=== PATIENT | male | born 1985 ===

== ENCOUNTER 2022-03-03 23:08 | Observation (INO) | payer SELFPAY ==
[2022-03-04] MEDS ORDERED: Sodium Chloride 0.9% 10 ML Syringe FLUSH PRN
[2022-03-04] MEDS ORDERED: Sodium Chloride 0.9% 2.5 ML Syringe FLUSH PRN
[2022-03-04 00:10] LABS: CORONAVIRUS COVID-19 NAA NEGATIVE (NEGATIVE); INFLUENZA A NAA NEGATIVE (NEGATIVE); INFLUENZA B NAA NEGATIVE (NEGATIVE)
[2022-03-04 00:38] LABS: BLOOD UREA NITROGEN,BUN 5 mg/dL (7.0-18.0); CARBON DIOXIDE,CO2 28.7 mmol/L (21.0-32.0); CHLORIDE,CL 92 mmol/L (98-107); GLUCOSE RANDOM 123 mg/dL (74-106); POTASSIUM,K 2.8 mmol/L (3.5-5.1); SODIUM,NA 135 mmol/L (136-148)
[2022-03-04 00:49] LABS: ESTIMATED GFR 124 mL/min (>60)
[2022-03-04] MEDS ORDERED: LORazepam 2 MG/ML SDV IVPUSH ONE ×2 (01:03→02:54)
[2022-03-04] MEDS ORDERED: Folic Acid 1 MG Tab PO ONE (01:32)
[2022-03-04] MEDS ORDERED: Thiamine 200 MG/2 ML MDV IVPUSH ONE (01:32)
[2022-03-04] MEDS ORDERED: Ondansetron 4 MG/2 ML SDV IVPUSH ONE (01:34)
[2022-03-04] MEDS ORDERED: Sodium Chloride 0.9% 1,000 ML IV ONE ×3 (01:37→02:55)
[2022-03-04] MEDS ORDERED: Alum Hydro/Mag Hydro/Simeth XS 15 ML, Lidocaine 2% 5 ML PO ONE ×2 (02:11)
[2022-03-04] MEDS ORDERED: Albuterol/Ipratropium 3.0-0.5 MG/3 ML Neb Soln NEB PRN (03:12)
[2022-03-04] MEDS ORDERED: Acetaminophen 325 MG Tab PO PRN (03:12)
[2022-03-04] MEDS ORDERED: Ondansetron 4 MG/2 ML SDV IVPUSH PRN (03:12)
[2022-03-04] MEDS ORDERED: LORazepam 2 MG/ML SDV IVPUSH PRN (03:13)
[2022-03-04] MEDS ORDERED: Lactated Ringers 1,000 ML IV SCH (03:15)
[2022-03-04] MEDS ORDERED: POTASSIUM CHLORIDE IV SCH (03:17)
[2022-03-04] MEDS ORDERED: LACTATED RINGERS IV SCH (03:17)
[2022-03-04] MEDS ORDERED: Potassium Chloride 20 MEQ in Premix Bag 1 BAG IV ONE ×5 (03:40→11:30)
[2022-03-04] MEDS ORDERED: Polyethylene Glycol 3350 Powder 17 GM Packet PO PRN (07:06)
[2022-03-04 07:51] LABS: CARBON DIOXIDE,CO2 30.6 mmol/L (21.0-32.0); POTASSIUM,K 2.9 mmol/L (3.5-5.1)
[2022-03-04] MEDS ORDERED: Folic Acid 1 MG Tab PO SCH (09:00)
[2022-03-04] MEDS ORDERED: amLODIPine 5 MG Tab PO SCH (11:15)
[2022-03-04] MEDS ORDERED: Propranolol 60 MG Cap.ER PO SCH (15:45)
[2022-03-04] MEDS: Lactated Ringers 1,000 ML IV SCH ×2 (16:35→23:57)
[2022-03-04] MEDS ORDERED: Thiamine 100 MG Tab PO SCH (21:00)
[2022-03-05] MEDS ORDERED: Methimazole 5 MG Tab PO SCH (09:00)
== END 2022-03-05 05:55 | disposition left against medical advice (07) ==
LOC: MW.ED 23:08 → MW.MS 03-04 02:57
PROVIDERS: ADMIT Student in an Organized Health Care Education/Training Program; ATTEND Student in an Organized Health Care Education/Training Program
DX: F10.930 Alcohol use, unspecified with withdrawal, uncomplicated (principal); I10 Essential (primary) hypertension; K21.9 Gastro-esophageal reflux disease without esophagitis; E01.0 Iodine-deficiency related diffuse (endemic) goiter; Z79.899 Other long term (current) drug therapy; Z87.891 Personal history of nicotine dependence; Z20.822 Contact with and (suspected) exposure to COVID-19
CPT/HCPCS: 0240U; 36415; 76536; 80053; 80307; 83735; 84100; 84439; 84443; 84445; 84481; 85025; 93005; 96361; 96374; 96375; 96376; 99285; A9270; G0378; J2060; J2405; J3411; J3480; J3490; J7030; J7120